=== PATIENT | female | born 1965 | race Caucasian/White ===

== ENCOUNTER → 2018-05-03 | Outpatient (CLI) | payer OTHER ==
[~2018-05-03] VITALS: Ht 170.2 cm; Wt 72.1 kg
[~2018-05-03] MED LIST: CAMRESE LO TAB1 EACH PO; CULTURELLE1 EACH PO; XANAX 0.5 MG0.5 MG PO
--- NOTE | ~2018-05-03 | PATH ---
[facility] [address] [place] [address] PATHOLOGY RPT PROCEDURE Name: OPHELIA INMAN Room #: REG ROMEL Cerna#: [id number] Admission: 05/03/18 Date of : 69 Discharge: Report #: [id number] Path Case #: [id number] [facility] Accession Number: [id number] . 01 Material submitted: . RECTAL POLYP BIOPSY . 01 Clinical history: . Pre-OP DX: Screening Post-OP DX: Colon polyp . 02 Diagnosis: "Rectal polyp bx", biopsy: - Tubular adenoma; no high-grade dysplasia. (CLW:pit; 05/06/2018) QTP/05/06/2018 . 02 Electronically signed: . Chelsea Davis MD, Pathologist NPI- [id number] . 01 Gross description: . Received in formalin labeled "Kathrine, Ophelia, rectal polyp BX," is a single segment of gastelum soft tissue measuring 0.3 cm in maximum dimension. The specimen is entirely submitted in cassette A1. (TSD; 05/03/2018) /TOB . 02 Pathologist provided ICD-10: D12.8 . 02 CPT . 707207 Performed at: [address], [place] [id number] MD Wade Mike MD Phone: [phone] Performed at: [address] [id number] MD Irene Mesa MD Phone: [phone]
--- NOTE | ~2018-05-03 | P ---
[facility] [place] [address] PROCEDURE REPORT Name: AMBER INMAN Room #: REG [facility].#: [id number] Admission: 05/03/18 Attend Phys: Percy Kovacs Discharge: Date of : 69 Report #: [id number] THIS REPORT FOR: //name// CC: Lor Jauregui DATE OF SERVICE: 05/03/2018 PROCEDURE PERFORMED: Colonoscopy with biopsies. HISTORY OF PRESENT ILLNESS: The patient is a 52-year-old female who presents today for routine screening colonoscopy. She denies any symptoms. No family history of colon cancer. DESCRIPTION OF PROCEDURE: The risks and benefits of the procedure were explained to the patient, those risks including but not limited to bleeding, perforation, the risk of sedation. She understood these risks and gave informed consent. Sedation was given using propofol per Anesthesia. Next, a digital rectal exam was initially performed, which showed small external hemorrhoid, otherwise normal. Next, using a standard Olympus colonoscope, the scope was placed in the patient's anus and advanced under direct vision to the cecum. The overall prep was excellent. The cecum and ileocecal valve were normal in appearance. Ascending, transverse, descending and sigmoid colon were all normal. In the rectum, there was a 4 mm sessile polyp. This was removed with cold forceps, otherwise normal. On retroflexion, no abnormalities were noted. The scope was then withdrawn and the procedure terminated. The patient tolerated the procedure well. IMPRESSION: 1. Small rectal polyp. 2. Small external hemorrhoid. 3. Otherwise, normal colonoscopy. RECOMMENDATIONS: 1. Await biopsy results. 2. If polyp is hyperplastic, repeat in 10 years; if adenomatous polyp, repeat in 5 years. Thank you for allowing me to participate in her care. By: [id number] Percy Jauregui MD /nt
== END | disposition home or self-care (01) ==
LOC: GI 04-29 16:00
DX: Z12.11 Encounter for screening for malignant neoplasm of colon (principal); D12.8 Benign neoplasm of rectum; K64.4 Residual hemorrhoidal skin tags; F41.9 Anxiety disorder, unspecified; Z79.899 Other long term (current) drug therapy; Z90.89 Acquired absence of other organs; Z98.890 Other specified postprocedural states; Z98.818 Other dental procedure status; Z86.73 Personal history of transient ischemic attack (TIA), and cerebral infarction without residual deficits
CPT/HCPCS: 62110; 62900